=== PATIENT | female | born 1940 | race Asian ===

== ENCOUNTER → 2019-06-26 | Outpatient (CLI) | payer MEDICARE, OTHER, MEDICAID ==
[~2019-06-26] MED LIST: ASPI-825 PO; DOCU100C34 PO; DOCU240C PO; ESOM20CA31 GT; EZET1TAB3 PO; GEMF600T89 PO; IOVERSOL 350 MG/ML 100 ML VIAL ONE; LISI20TA PO; METF-444 PO; METO-408 PO; NIFE90TA49 PO; PARO20TA24 PO; RALO60 PO; SODIUM CHLORIDE 0.9% 100 ML ONE
== END | disposition home or self-care (01) ==
LOC: RADMN 08:31
PROVIDERS: ATTEND Internal Medicine
DX: K76.0 Fatty (change of) liver, not elsewhere classified (principal); K80.50 Calculus of bile duct without cholangitis or cholecystitis without obstruction; Z90.49 Acquired absence of other specified parts of digestive tract
CPT/HCPCS: 74177; J7050; Q9967

== ENCOUNTER → 2019-06-27 | Outpatient (CLI) | payer MEDICARE, MEDICAID ==
[~2019-06-27] MED LIST changes: +GADOBUTROL 1 MMOL/ML 10 ML VIAL IVP ONE; -IOVERSOL 350 MG/ML 100 ML VIAL ONE; -SODIUM CHLORIDE 0.9% 100 ML ONE
== END | disposition home or self-care (01) ==
LOC: RADMN 08:24
PROVIDERS: ATTEND Internal Medicine
DX: C64.1 Malignant neoplasm of right kidney, except renal pelvis (principal); N28.89 Other specified disorders of kidney and ureter; I70.90 Unspecified atherosclerosis
CPT/HCPCS: 74183; A9585